=== PATIENT | female | born 1985 | race Caucasian/White ===

== ENCOUNTER 2019-08-08 02:32 | Observation (INO) | payer BC ==
--- NOTE | 2019-08-08 02:49 | EDM.PDOC ---
ED HPI GENERAL MEDICAL PROBLEM - General Chief Complaint: General Stated Complaint: vomiting Time Seen by Provider: 08/08/19 02:40 Source of Information: Reports: Patient History Limitations: Reports: No Limitations - History of Present Illness INITIAL COMMENTS - FREE TEXT/NARRATIVE: Patient to the emergency department complaining of generalized abdominal cramping with nausea vomiting and diarrhea off and on for the past several days. The patient denies any fever chills denies any chest pain or shortness of breath denies any ear, nose, throat symptoms. The patient denies any rash. The patient denies any dark or coffee-ground type vomitus and denies any bloody stools denies any black or tarry stools. The patient denies any mucus in her stools. Onset: Gradual Duration: Day(s): (Symptoms for the past few days) Location: Reports: Abdomen Quality: Reports: Ache Severity: Mild Improves with: Reports: None Worsens with: Reports: None Associated Symptoms: Reports: Nausea/Vomiting. 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 (see below) (none) - Related Data Allergies Allergy/AdvReac Type Severity Reaction Status Date / Time No Known Allergies Allergy Verified 08/08/19 02:36 Home Meds: Home Meds clonazePAM [Clonazepam] 0.5 mg PO BID 02/25/16 [History] Past Medical History - Past Surgical History HEENT Surgical History: Reports: Other (See Below) Other HEENT Surgeries/Procedures: wisdom teeth removal Social & Family History - Tobacco Use Smoking Status *Q: Never Smoker - Caffeine Use Caffeine Use: Reports: Soda - Recreational Drug Use Recreational Drug Use: No ED ROS GENERAL - Review of Systems Review Of Systems: See Below Constitutional: Reports: No Symptoms. Denies: Fever, Chills, Weakness HEENT: Reports: No Symptoms Respiratory: Reports: No Symptoms. Denies: Shortness of Breath Cardiovascular: Reports: No Symptoms. Denies: Chest Pain GI/Abdominal: Reports: Abdominal Pain, Diarrhea, Nausea, Vomiting. Denies: Black Stool, Bloody Stool, Constipation, Difficulty Swallowing, Distension, Hematemesis, Hematochezia, Melena, Mucous in Stool : Reports: No Symptoms Musculoskeletal: Reports: No Symptoms. Denies: Neck Pain, Back Pain Skin: Reports: No Symptoms. Denies: Bruising, Rash, Erythema Neurological: Reports: No Symptoms Psychiatric: Reports: No Symptoms ED EXAM, GENERAL - Physical Exam Exam: See Below Exam Limited By: No Limitations General Appearance: Alert, WD/WN, No Apparent Distress Ears: Normal External Exam Nose: Normal Inspection, Normal Mucosa Throat/Mouth: Normal Inspection, Normal Voice, No Airway Compromise Head: Atraumatic, Normocephalic Neck: Normal Inspection, Supple, Non-Tender, Full Range of Motion Respiratory/Chest: No Respiratory Distress, Lungs Clear, Normal Breath Sounds, Chest Non-Tender Cardiovascular: Normal Peripheral Pulses, Regular Rate, Rhythm, No Murmur Peripheral Pulses: 2+: Radial (L), Radial (R) GI/Abdominal: Normal Bowel Sounds, Soft, Non-Tender, No Distention Back Exam: Normal Inspection, Full Range of Motion Extremities: Normal Inspection, Normal Range of Motion, Non-Tender, Normal Capillary Refill Neurological: Alert, Oriented, Normal Cognition, Normal Gait, No Motor/Sensory Deficits Psychiatric: Normal Affect, Normal Mood Skin Exam: Warm, Dry, Intact, Normal Color, No Rash Course - Vital Signs Text/Narrative:: The patient was evaluated in the emergency department the patient CBC is essentially negative, the patient's general chemistry does show a potassium of 2.6. The rest of the general chemistries are essentially negative. The patient has been given normal saline 1 L bolus. She is also been given Zofran 4 mg IV which has decreased her nausea and vomiting at this point. The patient also will have her potassium replaced she will need to be admitted in observation for probably less than 24 hours to control the nausea vomiting and replace the potassium. Potassium level will be reevaluated at noon today. Orders for details for potassium replacement. The patient has not had to have a stool sample at this point however this will be obtained once the patient does have a bowel movement. Last Recorded V/S: Last Vital Signs Temp 36.5 C 08/08/19 02:32 Pulse 115 H 08/08/19 02:32 Resp 18 08/08/19 02:32 BP 147/102 H 08/08/19 02:32 Pulse Ox 98 08/08/19 02:32 - Orders/Labs/Meds Orders: Active Orders 24 hr Category Date Time Status C DIFFICILE BY DNA [RM] Stat Lab 08/08/19 02:54 Ordered STOOL CULTURE [MREF] Stat Lab 08/08/19 02:54 Ordered WBC, STOOL [OP] Stat Lab 08/08/19 02:54 Ordered NS + KCl 20mEq/L [Normal Saline with 20 mEq KCl] 1,000 Med 08/08/19 03:45 Active ml IV ASDIRECTED Potassium Chloride Riders [KCL 40 MEQ in Water 100 ML] Med 08/08/19 03:39 Active 40 meq Premix Bag 1 bag IV ONETIME Sodium Chloride 0.9% [Normal Saline] 1,000 ml Med 08/08/19 02:53 Active IV .BOLUS Medication Orders Sodium Chloride (Normal Saline) 1,000 mls @ 999 mls/hr IV .BOLUS ONE Stop: 08/08/19 03:53 Last Admin: 08/08/19 03:09 Dose: 999 mls/hr Potassium Chloride 40 meq/ (Premix) 100 mls @ 25 mls/hr IV ONETIME ONE Stop: 08/08/19 07:38 Potassium Chloride/Sodium Chloride (Normal Saline With 20 Meq Kcl) 1,000 mls @ 100 mls/hr IV ASDIRECTED [facility] Labs: Laboratory Tests 08/08/19 08/08/19 08/08/19 Range/Units 03:10 03:10 03:10 WBC 4.6 L (5.0-10.0) 10^3/uL RBC 4.15 (4.00-5.50) 10^6/uL Hgb 13.7 (12.0-16.0) g/dL Hct 38.6 (37.0-47.0) % MCV 93.0 (82.0-94.0) fL MCH 33.0 H (27.0-32.0) pg MCHC 35.5 (33.0-38.0) g/dL RDW Coeff of Stefan 14.0 (11.0-15.0) % Plt Count 199 (150-400) 10^3/uL Neut % (Auto) 60.2 (35-85) % Lymph % (Auto) 31.9 (10-55) % [place] % (Auto) 5.5 (0-16) % Eos % (Auto) 2.0 (0-5) % Baso % (Auto) 0.4 (0-3) % Neut # (Auto) 2.75 (1.80-7.00) 10^3/uL Lymph # (Auto) 1.46 (1.00-4.80) 10^3/uL [place] # (Auto) 0.25 (0.00-0.80) 10^3/uL Eos # (Auto) 0.09 (0.00-0.45) 10^3/uL Baso # (Auto) 0.02 10^3/uL Sodium 143 (136-145) mEq/L Potassium 2.6 L* D (3.5-5.0) mEq/L Chloride 102 (98-106) mEq/L Carbon Dioxide 25 (21-32) mmol/L BUN 10 (7-18) mg/dL Creatinine 0.8 (0.6-1.0) mg/dL Est Cr Clr Drug Dosing 102.78 mL/min Estimated GFR (MDRD) > 60 (>=60) mL/min Glucose 106 H (75-99) mg/dL Calcium 8.8 (8.4-10.1) mg/dL Total Bilirubin 0.9 (0.0-1.0) mg/dL AST 195 H (15-37) U/L ALT 55 (12-78) U/L Alkaline Phosphatase 92 (46-116) U/L Total Protein 7.8 (6.4-8.2) g/dL Albumin 3.7 (3.4-5.0) g/dL Lipase 183 (73-393) U/L HCG, Qual Negative Meds: Medications Generic Name Dose Route Start Last Admin Trade Name Freq PRN Reason Stop Dose Admin Sodium Chloride 1,000 mls @ 999 mls/hr 08/08/19 02:53 08/08/19 03:09 Normal Saline IV 08/08/19 03:53 999 mls/hr .BOLUS ONE Administration Potassium Chloride 40 meq/ 100 mls @ 25 mls/hr 08/08/19 03:39 Premix IV 08/08/19 07:38 ONETIME ONE Potassium Chloride/Sodium Chloride 1,000 mls @ 100 mls/hr 08/08/19 03:45 Normal Saline With 20 Meq Kcl IV ASDIRECTED EFREM Discontinued Medications Generic Name Dose Route Start Last Admin Trade Name Freq PRN Reason Stop Dose Admin Ondansetron HCl 4 mg 08/08/19 02:54 08/08/19 03:11 Zofran IVPUSH 08/08/19 02:55 4 mg ONETIME ONE Administration Potassium Chloride 40 meq 08/08/19 03:40 Klor-Con 10 PO 08/08/19 03:41 ONETIME ONE Departure - Departure Time of Disposition: 03:50 Disposition: Refer to Observation Condition: Good Clinical Impression: Nausea vomiting and diarrhea, Hypokalemia - Discharge Information *PRESCRIPTION DRUG MONITORING PROGRAM REVIEWED*: Not Applicable *COPY OF PRESCRIPTION DRUG MONITORING REPORT IN PATIENT MARY: Not Applicable Forms: ED Department Discharge - Problem List & Annotations (1) Hypokalemia SNOMED Code(s): 99412470 Code(s): E87.6 - HYPOKALEMIA Status: Acute Priority: High (2) Nausea vomiting and diarrhea SNOMED Code(s): 4643588 Code(s): R11.2 - NAUSEA WITH VOMITING, UNSPECIFIED; R19.7 - DIARRHEA, UNSPECIFIED Status: Acute Priority: Medium - Problem List Review Problem List Initiated/Reviewed/Updated: Yes - My Orders Last 24 Hours: My Active Orders 08/08/19 02:53 Sodium Chloride 0.9% [Normal Saline] 1,000 ml IV .BOLUS 08/08/19 02:54 C DIFFICILE BY DNA [RM] Stat STOOL CULTURE [MREF] Stat WBC, STOOL [OP] Stat 08/08/19 03:39 Potassium Chloride Riders [KCL 40 MEQ in Water 100 ML] 40 meq Premix Bag 1 bag IV ONETIME 08/08/19 03:45 NS + KCl 20mEq/L [Normal Saline with 20 mEq KCl] 1,000 ml IV ASDIRECTED - Assessment/Plan Admission H&P: Please use this note as an admission H&P Last 24 Hours: My Active Orders 08/08/19 02:53 Sodium Chloride 0.9% [Normal Saline] 1,000 ml IV .BOLUS 08/08/19 02:54 C DIFFICILE BY DNA [RM] Stat STOOL CULTURE [MREF] Stat WBC, STOOL [OP] Stat 08/08/19 03:39 Potassium Chloride Riders [KCL 40 MEQ in Water 100 ML] 40 meq Premix Bag 1 bag IV ONETIME 08/08/19 03:45 NS + KCl 20mEq/L [Normal Saline with 20 mEq KCl] 1,000 ml IV ASDIRECTED Plan: The patient will be placed in observation and will have IV fluid replacement as well as potassium replacement. This will be reevaluated at noon and then disposition and further treatment will be made at that point. Stool sample is pending and additional treatment will be based on the results of the stool sample. Patient will be given Zofran 4 mg IV every 6 hours as needed for any nausea or vomiting
[2019-08-08] MEDS ORDERED: Sodium Chloride 0.9% 1,000 ML IV ONE (02:53)
[2019-08-08] MEDS ORDERED: Ondansetron 4 MG/2 ML SDV IVPUSH ONE (02:54)
[2019-08-08 03:32] LABS: CHLORIDE,CL 102 mEq/L (98-106); SODIUM,NA 143 mEq/L (136-145)
[2019-08-08] MEDS ORDERED: Potassium Chloride Riders 40 MEQ in Premix Bag 1 BAG IV ONE (03:39)
[2019-08-08] MEDS ORDERED: Potassium Chloride 10 MEQ Tab.ER PO ONE (03:40)
[2019-08-08] MEDS ORDERED: Ondansetron 4 MG/2 ML SDV IV PRN (03:53)
[2019-08-08] MEDS: NS + KCl 20mEq/L 1,000 ML IV SCH ×2 (04:18→14:30)
[2019-08-08] MEDS: ClonazePAM 1 MG Tab PO SCH ×2 (08:09→19:12)
[2019-08-08 12:18] LABS: CHLORIDE,CL 105 mEq/L (98-106); SODIUM,NA 141 mEq/L (136-145)
[2019-08-08] MEDS: Acetaminophen 325 MG Tab PO PRN ×2 (13:56→19:13)
[2019-08-08] MEDS ORDERED: cefTRIAXone 1 GM Vial IVPUSH SCH (14:00)
[2019-08-08] MEDS ORDERED: Pantoprazole 40 MG Vial IVPUSH SCH (14:00)
[2019-08-08] MEDS ORDERED: Magnesium Sulfate/D5W 2 GM in Premix Bag 1 BAG IV ONE (15:07)
[2019-08-08] MEDS: Ibuprofen 200 MG Tab PO PRN (23:38)
[2019-08-09] MEDS: NS + KCl 20mEq/L 1,000 ML IV SCH (02:33)
[2019-08-09] MEDS: Acetaminophen 325 MG Tab PO PRN (02:38)
[2019-08-09] MEDS: ClonazePAM 1 MG Tab PO SCH (07:22)
[2019-08-09] MEDS: Ibuprofen 200 MG Tab PO PRN (07:25)
[2019-08-09 07:34] VITALS: PULSE 94
[2019-08-09 07:34] LABS: CHLORIDE,CL 108 mEq/L (98-106); SODIUM,NA 141 mEq/L (136-145)
[2019-08-09 09:09] VITALS: BP 157/91
--- NOTE | 2019-08-10 08:58 | DISCH ---
HISTORY: Nancy is a 33-year-old female who presented to the emergency room yesterday morning with concerns of abdominal cramping with nausea, vomiting, diarrhea that was on and off for the last few days. The patient did have a complete laboratory workup, was found to have low potassium. The patient was admitted to the hospital for IV fluids and potassium replacement. Magnesium was drawn in the morning with the magnesium of 1.2. ADMITTING DIAGNOSES: 1. Nausea, vomiting, diarrhea. 2. Hypokalemia. DISCHARGE DIAGNOSIS: 1. HYPOKALEMIA, RESOLVED. 2. HYPOMAGNESEMIA, RESOLVED. 3. NAUSEA, VOMITING, DIARRHEA, RESOLVED. 4. ELEVATED BLOOD PRESSURE READINGS. CONSULTATIONS: None. BRIEF HOSPITAL COURSE: The patient has had 2 episodes of diarrhea since admission. Potassium this morning is now 3.7. Overall, she is feeling a lot better. Her magnesium is also corrected at 1.9 this morning. She did show a positive urinalysis with positive nitrites. IV Rocephin has been given, was given yesterday, and also given this morning. Last blood pressure was 129/97, was 151/92, 132/89 prior. PHYSICAL EXAMINATION: GENERAL: Pleasant, cooperative female. She does not really appear in any distress whatsoever. She is sitting up, having normal conversation. Appeared to be nontoxic nor acutely ill. HEENT: Grossly unremarkable. LUNGS: Clear to auscultation. Denies any adventitious sounds. CARDIAC: Regular rate and rhythm. No murmurs are noted. No pedal edema is noted. ABDOMEN: Soft. Bowel sounds are present. Normoactive. No organomegaly. No guarding or rigidity is noted. LABORATORY DATA: Further, the laboratory tests completed during her stay do include C. diff which was negative. WBCs in stool which were negative. Otherwise, CBC was unremarkable on admission. White blood count was 4600. DISPOSITION: Diet: Resume diet as tolerated. May want to consider a BRAT diet. DISCHARGE MEDICATIONS: We will refrain from giving any potassium supplements or magnesium supplements. I discussed bananas, etc. I did advise patient that it is likely secondary to the nausea, vomiting, diarrhea that had caused her to get a low potassium and also low magnesium. We will refrain from any hypertensive medications at this point in time. Followup appointments; do recommend rechecking blood pressure in clinic tomorrow and the next day with a followup with the PCP within the next week for recheck blood pressure. She is to continue to drink a lot of fluids. If she has any complications sooner, she definitely is to let us know. I did advise her that repeat lab work should be completed in 1 week. We will discharge in satisfactory condition at this time. CANDI /[id number]
== END 2019-08-09 10:00 | disposition home or self-care (01) ==
LOC: CC.ED 02:32 → CC.MS 03:53 → UNDOADMOB 04:00
PROVIDERS: ADMIT Nurse Practitioner; ATTEND Family Medicine
DX: E87.6 Hypokalemia (principal); E83.42 Hypomagnesemia; R03.0 Elevated blood-pressure reading, without diagnosis of hypertension; R10.9 Unspecified abdominal pain; R11.2 Nausea with vomiting, unspecified; R19.7 Diarrhea, unspecified; Z79.899 Other long term (current) drug therapy
CPT/HCPCS: 36415; 71046; 80048; 80053; 81001; 83690; 83735; 84703; 85025; 87045; 87046; 87493; 89055; 96361; 96365; 96366; 96368; 96374; 96375; 99284-25; A9270-GY; C9113; G0378; J0696; J2405; J3475; J3480; J7030

== ENCOUNTER 2021-09-15 10:57 | Emergency (ER) | payer BC ==
[2021-09-15 11:13] VITALS: BP 128/87; PULSE 100
--- NOTE | 2021-09-15 11:45 | EDM.PDOC ---
ED HPI GENERAL MEDICAL PROBLEM - General Chief Complaint: General Stated Complaint: frostbite bilateral ears Time Seen by Provider: 09/15/21 11:25 Source of Information: Reports: Patient History Limitations: Reports: No Limitations - History of Present Illness INITIAL COMMENTS - FREE TEXT/NARRATIVE: Nancy is a 36 year old female who presents with swelling, blisters and pain to her ears. Was out shoveling snow yesterday without any ear protection and the wind chill was well below zero. Noted more discomfort during the night. Has been taking ibuprofen for discomfort. Noted blistering to her left ear that is causing a great deal of discomfort today. Last tetanus was within the year. Onset: Gradual Duration: Hour(s):, Getting Worse Location: Reports: Head Quality: Reports: Burning, Throbbing Severity: Moderate Improves with: Reports: Medication Associated Symptoms: Reports: No Other Symptoms Treatments FLAME DEGREASER: Reports: NSAIDS Bilateral Ear Pain Score (Numeric/FACES): 7 - Related Data Allergies Allergy/AdvReac Type Severity Reaction Status Date / Time No Known Allergies Allergy Verified 09/15/21 11:18 Home Meds: Home Meds clonazePAM [Clonazepam] 0.5 mg PO BID 02/25/16 [History] Etonogestrel [Nexplanon] 68 mg SQ ASDIRECTED 12/10/20 [History] Albuterol Sulfate [Albuterol Sulfate Hfa] 1 inh INH ASDIRECTED 09/15/21 [History] Past Medical History - Past Surgical History HEENT Surgical History: Reports: Other (See Below) Other HEENT Surgeries/Procedures: wisdom teeth removal Social & Family History - Tobacco Use Tobacco Use Status *Q: Never Tobacco User - Caffeine Use Caffeine Use: Reports: Soda - Recreational Drug Use Recreational Drug Use: No ED ROS GENERAL - Review of Systems Review Of Systems: See Below Constitutional: Denies: Fever, Chills, Malaise, Weakness HEENT: Reports: Ear Pain. Denies: Ear Discharge Respiratory: Reports: No Symptoms Cardiovascular: Reports: No Symptoms Endocrine: Reports: No Symptoms GI/Abdominal: Reports: No Symptoms ED EXAM, GENERAL - Physical Exam Exam: See Below Exam Limited By: No Limitations General Appearance: Alert, WD/WN, No Apparent Distress Ears: Normal Canal, Other (significant redness, swelling of the auricle of both ears. Has large blister to upper auricle to the left ear, small one to the right ear.) Nose: Normal Inspection, Normal Mucosa, No Blood Throat/Mouth: Normal Inspection, Normal Oropharynx Head: Normocephalic Neck: Normal Inspection, Supple, Non-Tender Respiratory/Chest: No Respiratory Distress, Lungs Clear, Normal Breath Sounds Cardiovascular: Regular Rate, Rhythm GI/Abdominal: Normal Bowel Sounds, Soft, Non-Tender Course - Vital Signs Last Recorded V/S: Last Vital Signs Temp 97.3 F 09/15/21 11:00 Pulse 100 09/15/21 11:00 Resp 18 09/15/21 11:00 BP 128/87 09/15/21 11:00 Pulse Ox 97 09/15/21 11:00 - Re-Assessments/Exams Free Text/Narrative Re-Assessment/Exam: 09/15/21 xeroform gauze applied to auricles bilaterally. Gauze applied lightly and head wrapped with gauze. Instructions given. Departure - Departure Time of Disposition: 12:00 Disposition: Home, Self-Care 01 Condition: Fair Clinical Impression: Frostbite of both ears - Discharge Information *PRESCRIPTION DRUG MONITORING PROGRAM REVIEWED*: No *COPY OF PRESCRIPTION DRUG MONITORING REPORT IN PATIENT MARY: No Instructions: Frostbite, [id number] Referrals: PCP,Unknown [Primary Care Provider] - Forms: ED Department Discharge Additional Instructions: 1. Keep moist xeroform gauze on ears for 24 hours with current bandage 2. Reapply xeroform and light gauze tomorrow or use vaseline 2-3 times per day to ears 3. May need to see physical therapy for debridement if ears peel a great deal, have increased drainage or increasing pain 4. Ibuprofen every 6 hours as needed 5. Follow up in clinic if persisting concerns. Sepsis Event Note (ED) - Evaluation Sepsis Screening Result: No Definite Risk - Focused Exam Vital Signs: Vital Signs Temp Pulse Resp BP Pulse Ox 09/15/21 11:00 97.3 F 100 18 128/87 97
== END 2021-09-15 12:00 | disposition home or self-care (01) ==
LOC: CC.ED 10:57
DX: T33.012A Superficial frostbite of left ear, initial encounter (principal); T33.011A Superficial frostbite of right ear, initial encounter; X31.XXXA Exposure to excessive natural cold, initial encounter
CPT/HCPCS: 99282

== ENCOUNTER 2022-03-17 14:20 | Observation (INO) | payer BC ==
[2022-03-17 14:49] LABS: CHLORIDE,CL 104 mEq/L (98-106); SODIUM,NA 143 mEq/L (136-145)
[2022-03-17 14:50] LABS: ESTIMATED GFR 116 mL/min (>=60)
[2022-03-17] MEDS ORDERED: Aluminum Hydroxide/Magnesium Hydroxide/Simethicone Susp 30 ML Cup PO PRN (16:42)
[2022-03-17] MEDS ORDERED: Acetaminophen 325 MG Tab PO PRN (16:42)
[2022-03-17] MEDS ORDERED: LORazepam 0.5 MG Tab PO PRN (16:47)
[2022-03-17] MEDS ORDERED: LORazepam 2 MG/ML Syringe IVPUSH PRN ×2 (16:54→17:30)
[2022-03-17] MEDS ORDERED: ETONOGESTREL 68 MG SQ SCH (16:54)
[2022-03-17] MEDS ORDERED: Albuterol 8 GM Inhaler INH PRN (16:54)
[2022-03-17] MEDS ORDERED: Non-Formulary Medication 1 Each (Albuterol Sulfate [Albuterol Sulfate Hfa] 8.5 GM Hfa.Aer. INH PRN (16:54)
[2022-03-17] MEDS: Folic Acid 1 MG, Multivitamins 1 TAB, Thiamine 100 MG, Magnesium Oxide 500 MG PO SCH ×4 (17:32)
[2022-03-17] MEDS: chlordiazePOXIDE 10 MG Cap PO SCH (19:24)
[2022-03-18] MEDS: chlordiazePOXIDE 10 MG Cap PO SCH (07:51)
[2022-03-18] MEDS: Folic Acid 1 MG, Multivitamins 1 TAB, Thiamine 100 MG, Magnesium Oxide 500 MG PO SCH ×4 (07:53)
[2022-03-18] MEDS ORDERED: Loratadine 10 MG Tab PO SCH (08:00)
[2022-03-18] MEDS ORDERED: Potassium Chloride 10 MEQ Tab.ER PO SCH (08:00)
[2022-03-18] MEDS ORDERED: Cholecalciferol (Vitamin D3) 25 MCG Tab PO SCH (08:00)
[2022-03-18] MEDS ORDERED: Montelukast 10 MG Tab PO SCH (08:00)
[2022-03-18 09:10] VITALS: BP 113/91; PULSE 79
== END 2022-03-18 10:01 | disposition home or self-care (01) ==
LOC: CC.FCMC 14:20 → UNDOADMOB 15:51 → CC.MS 15:51 → UNDOADMOB 15:54 → CC.MS 15:54
PROVIDERS: ADMIT Nurse Practitioner Family; ATTEND Nurse Practitioner Family
DX: F10.139 Alcohol abuse with withdrawal, unspecified (principal); F10.188 Alcohol abuse with other alcohol-induced disorder; R56.9 Unspecified convulsions; F41.9 Anxiety disorder, unspecified; E87.6 Hypokalemia; Z79.899 Other long term (current) drug therapy; Z79.3 Long term (current) use of hormonal contraceptives
CPT/HCPCS: 36415; 80053; 80307; 83735; 84443; 85025; A9270-GY; G0378

== ENCOUNTER 2023-08-10 10:35 | Inpatient (IN) | payer BC ==
[2023-08-10 10:50] LABS: BASOPHILS ABSOLUTE AUTO 0.04 10^3/uL (0.00-0.50); BASOPHILS PERCENT AUTO 0.3 % (0-1); EOSINOPHILS ABSOLUTE AUTO 0.21 10^3/uL (0.00-1.50); EOSINOPHILS PERCENT AUTO 1.5 % (0-6); HEMATOCRIT 35.4 % (37.0-47.0); HEMOGLOBIN 11.9 g/dL (12.0-16.0); IMMATURE GRAN ABSOLUTE AUTO 0.04 10^3/uL (0.00-0.49); IMMATURE GRAN PERCENT AUTO 0.3 % (0.0-4.9); LYMPHOCYTES ABSOLUTE AUTO 0.72 10^3/uL (0.60-5.00); LYMPHOCYTES PERCENT AUTO 5.2 % (24-44); MEAN CORPUSCULAR HEMOGLOBIN 34.5 pg (27.0-32.0); MEAN CORPUSCULAR HGB CONC 33.6 g/dL (32.0-36.0); MEAN CORPUSCULAR VOLUME 102.6 fL (83.0-97.0); MONOCYTES ABSOLUTE AUTO 1.15 10^3/uL (0.00-1.50); MONOCYTES PERCENT AUTO 8.4 % (0-10); NEUTROPHILS PERCENT AUTO 84.3 % (41-71); PLATELET COUNT,PLT 170 10^3/uL (150-400); RED BLOOD CELL COUNT 3.45 x10^6/uL (4.00-5.50); WHITE BLOOD CELL COUNT,WBC 13.8 10^3/uL (4.0-11.0)
[2023-08-10 11:04] LABS: ALANINE AMINOTRANSFERASE,ALT 32 U/L (12-78); ALBUMIN 2.4 g/dL (3.4-5.0); ALKALINE PHOSPHATASE 302 U/L (46-116); BILIRUBIN TOTAL 4.6 mg/dL (0.0-1.0); BLOOD UREA NITROGEN,BUN 7 mg/dL (7-18); C-REACTIVE PROTEIN 1.83 mg/dL (<=0.30); CALCIUM 8.6 mg/dL (8.4-10.1); CARBON DIOXIDE,CO2 30 mmol/L (21-32); CHLORIDE,CL 98 mEq/L (98-106); CREATININE 0.7 mg/dL (0.6-1.0); ETHANOL BLOOD MEDICAL 219 mg/dL (0-3); GLUCOSE RANDOM 121 mg/dL (75-99); MAGNESIUM 1.9 mg/dL (1.8-2.4); PROTEIN TOTAL,TP 8.3 g/dL (6.4-8.2); SODIUM,NA 139 mEq/L (136-145)
[2023-08-10 11:10] LABS: ASPARTATE AMNIOTRANSFERASE,AST 379 U/L (15-37); ESTIMATED GFR 116 mL/min (>=60); POTASSIUM,K 2.8 mEq/L (3.5-5.0)
[2023-08-10] MEDS ORDERED: Ondansetron 4 MG/2 ML SDV IV PRN (11:59)
[2023-08-10] MEDS ORDERED: Temazepam 15 MG Cap PO PRN (11:59)
[2023-08-10] MEDS ORDERED: Sodium Chloride 0.9% 10 ML Syringe FLUSH PRN (11:59)
[2023-08-10] MEDS ORDERED: Ondansetron 4 MG Tab.DIS PO PRN (11:59)
[2023-08-10 12:00] LABS: APPEARANCE,URINE CLEAR (CLEAR); COLOR,URINE AMBER (YELLOW); KETONES,URINE 15 mg/dL (NEGATIVE); LEUKOCYTE ESTERASE,URINE TRACE (NEGATIVE); NITRITE,URINE POSITIVE (NEGATIVE); OCCULT BLOOD,URINE TRACE-INTACT (NEGATIVE); PH,URINE 5.5 (4.5-8.0); PROTEIN,URINE 100 mg/dL (NEGATIVE); UROBILINOGEN,URINE >=8.0 EU/dL (0.2-1.0)
[2023-08-10 12:04] LABS: BILIRUBIN,URINE LARGE (NEGATIVE); GLUCOSE,URINE NEGATIVE (NEGATIVE)
[2023-08-10] MEDS ORDERED: Albuterol 6.7 GM Inhaler INH PRN (12:08)
[2023-08-10] MEDS ORDERED: Metoprolol Tartrate 5 MG/5 ML SDV IVPUSH ONE ×2 (12:16→20:52)
[2023-08-10 12:23] LABS: BACTERIA,URINE MODERATE /HPF (NOT SEEN); EPITHELIAL CELLS,URINE FEW /HPF (NOT SEEN); MUCUS,URINE FEW /HPF (NOT SEEN); WBC,URINE 20-30 /HPF (0-5)
[2023-08-10] MEDS: Sodium Chloride 0.9% 1,000 ML IV SCH ×3 (12:26→21:51)
[2023-08-10] MEDS: Potassium Chloride Riders 20 MEQ in Premix Bag 1 BAG IV SCH ×3 (12:58→18:03)
[2023-08-10] MEDS ORDERED: Fluticasone NASAL Spray 16 GM Bottle NASBOTH PRN (14:58)
[2023-08-10] MEDS ORDERED: Ketorolac 30 MG/ML SDV IVPUSH ONE (15:37)
[2023-08-10] MEDS: Potassium Chloride 20 MEQ Tab.ER PO SCH (17:24)
[2023-08-10] MEDS: Pregabalin 50 MG Cap PO SCH (19:24)
[2023-08-10] MEDS: Pregabalin 25 MG Cap PO SCH (19:24)
[2023-08-10] MEDS ORDERED: BUSPIRONE HCL 7.5 MG PO SCH (20:00)
[2023-08-11] MEDS: LORazepam 2 MG/ML SDV IVPUSH PRN ×4 (01:57→20:57)
[2023-08-11 07:33] LABS: HEMATOCRIT 29.8 % (37.0-47.0); HEMOGLOBIN 10.1 g/dL (12.0-16.0); LYMPHOCYTES PERCENT AUTO 5.2 % (24-44); MEAN CORPUSCULAR HEMOGLOBIN 35.2 pg (27.0-32.0); MEAN CORPUSCULAR HGB CONC 33.9 g/dL (32.0-36.0); MEAN CORPUSCULAR VOLUME 103.8 fL (83.0-97.0); NEUTROPHILS PERCENT AUTO 86.9 % (41-71); PLATELET COUNT,PLT 114 10^3/uL (150-400); RED BLOOD CELL COUNT 2.87 x10^6/uL (4.00-5.50); WHITE BLOOD CELL COUNT,WBC 10.7 10^3/uL (4.0-11.0)
[2023-08-11 07:34] LABS: BASOPHILS ABSOLUTE AUTO 0.01 10^3/uL (0.00-0.50); BASOPHILS PERCENT AUTO 0.1 % (0-1); EOSINOPHILS ABSOLUTE AUTO 0.08 10^3/uL (0.00-1.50); EOSINOPHILS PERCENT AUTO 0.8 % (0-6); IMMATURE GRAN ABSOLUTE AUTO 0.05 10^3/uL (0.00-0.49); IMMATURE GRAN PERCENT AUTO 0.5 % (0.0-4.9); LYMPHOCYTES ABSOLUTE AUTO 0.55 10^3/uL (0.60-5.00); MONOCYTES ABSOLUTE AUTO 0.69 10^3/uL (0.00-1.50); MONOCYTES PERCENT AUTO 6.5 % (0-10); NEUTROPHILS ABSOLUTE AUTO 9.28 x10^3/uL (1.80-8.00)
[2023-08-11] MEDS: Potassium Chloride 20 MEQ Tab.ER PO SCH ×2 (07:43→17:21)
[2023-08-11] MEDS: Pregabalin 25 MG Cap PO SCH ×2 (07:43→19:26)
[2023-08-11] MEDS: Sodium Chloride 0.9% 1,000 ML IV SCH ×3 (07:43→19:27)
[2023-08-11] MEDS: Pregabalin 50 MG Cap PO SCH ×2 (07:43→19:26)
[2023-08-11] MEDS: Ibuprofen 200 MG Tab PO PRN (07:44)
[2023-08-11] MEDS: Magnesium Oxide 400 MG Tab PO SCH (07:44)
[2023-08-11] MEDS ORDERED: Thiamine 500 MG in Sodium Chloride 0.9% 250 ML IV SCH (07:45)
[2023-08-11] MEDS: Metoprolol Succinate 25 MG Tab.ER PO SCH (07:45)
[2023-08-11 07:47] LABS: ALBUMIN 1.9 g/dL (3.4-5.0); BILIRUBIN TOTAL 7.9 mg/dL (0.0-1.0); C-REACTIVE PROTEIN 1.73 mg/dL (<=0.30); CALCIUM 7.3 mg/dL (8.4-10.1); CREATININE 0.7 mg/dL (0.6-1.0); EST CRCL DRUG DOSING (CG) 100.94 mL/min; POTASSIUM,K 3.7 mEq/L (3.5-5.0); PROTEIN TOTAL,TP 6.5 g/dL (6.4-8.2)
[2023-08-11] MEDS ORDERED: Montelukast 10 MG Tab PO SCH (08:00)
[2023-08-11] MEDS: Multivitamin Tab PO SCH (08:18)
[2023-08-11] MEDS: Folic Acid 1 MG Tab PO SCH (08:18)
[2023-08-11] MEDS ORDERED: cefTRIAXone 2 GM Vial IVPUSH ONE ×2 (09:00→09:15)
[2023-08-11 11:56] LABS: TSH ULTRASENSITIVE 3.91 uIU/mL (0.36-5.60)
[2023-08-11] MEDS: ALPRAZolam 0.25 MG Tab PO SCH ×2 (13:20→19:26)
[2023-08-11] MEDS: Thiamine 500 MG in Sodium Chloride 0.9% 100 ML IV SCH ×2 (13:20→19:25)
[2023-08-11 22:41] LABS: AMMONIA 169 umol/L (6-47)
[2023-08-12] MEDS: Ibuprofen 200 MG Tab PO PRN (01:29)
[2023-08-12] MEDS: Lactulose Soln 10 GM/15 ML 30 ML UD Cup PO SCH ×5 (01:50→19:31)
[2023-08-12] MEDS: LORazepam 2 MG/ML SDV IVPUSH PRN ×2 (02:28→09:00)
[2023-08-12] MEDS: Thiamine 500 MG in Sodium Chloride 0.9% 100 ML IV SCH ×3 (07:54→19:32)
[2023-08-12] MEDS: Potassium Chloride 20 MEQ Tab.ER PO SCH ×2 (07:57→17:37)
[2023-08-12 07:58] LABS: ALBUMIN 1.9 g/dL (3.4-5.0); BILIRUBIN TOTAL 7.3 mg/dL (0.0-1.0); C-REACTIVE PROTEIN 2.71 mg/dL (<=0.30); CALCIUM 7.9 mg/dL (8.4-10.1); CREATININE 0.6 mg/dL (0.6-1.0); EST CRCL DRUG DOSING (CG) 117.76 mL/min; MAGNESIUM 1.4 mg/dL (1.8-2.4); POTASSIUM,K 3.5 mEq/L (3.5-5.0); PROTEIN TOTAL,TP 6.5 g/dL (6.4-8.2)
[2023-08-12] MEDS: Metoprolol Succinate 25 MG Tab.ER PO SCH (07:58)
[2023-08-12] MEDS: Multivitamin Tab PO SCH (07:59)
[2023-08-12] MEDS: ALPRAZolam 0.25 MG Tab PO SCH ×2 (07:59→18:13)
[2023-08-12] MEDS ORDERED: cefTRIAXone 2 GM Vial IVPUSH SCH (08:00)
[2023-08-12] MEDS: Pregabalin 25 MG Cap PO SCH ×2 (08:00→19:31)
[2023-08-12] MEDS: Folic Acid 1 MG Tab PO SCH (08:00)
[2023-08-12] MEDS: Magnesium Oxide 400 MG Tab PO SCH (08:00)
[2023-08-12] MEDS: Pregabalin 50 MG Cap PO SCH ×2 (08:00→19:31)
[2023-08-12 08:08] LABS: BASOPHILS ABSOLUTE AUTO 0.02 10^3/uL (0.00-0.50); BASOPHILS PERCENT AUTO 0.2 % (0-1); EOSINOPHILS ABSOLUTE AUTO 0.22 10^3/uL (0.00-1.50); EOSINOPHILS PERCENT AUTO 2.2 % (0-6); HEMATOCRIT 30.6 % (37.0-47.0); HEMOGLOBIN 10.1 g/dL (12.0-16.0); IMMATURE GRAN ABSOLUTE AUTO 0.03 10^3/uL (0.00-0.49); IMMATURE GRAN PERCENT AUTO 0.3 % (0.0-4.9); MEAN CORPUSCULAR HEMOGLOBIN 35.1 pg (27.0-32.0); MEAN CORPUSCULAR VOLUME 106.3 fL (83.0-97.0); MONOCYTES ABSOLUTE AUTO 0.69 10^3/uL (0.00-1.50); MONOCYTES PERCENT AUTO 6.9 % (0-10); NEUTROPHILS ABSOLUTE AUTO 8.35 x10^3/uL (1.80-8.00); NEUTROPHILS PERCENT AUTO 83.4 % (41-71); PLATELET COUNT,PLT 120 10^3/uL (150-400); RED BLOOD CELL COUNT 2.88 x10^6/uL (4.00-5.50)
[2023-08-12] MEDS ORDERED: Magnesium Sulfate/Water 4 GM in Premix Bag 1 BAG IV ONE (09:00)
[2023-08-12] MEDS ORDERED: Iopamidol 755 Mg/ML 100 ML Bottle IVPUSH ONE (09:37)
[2023-08-12 11:42] LABS: INR 1.41 (0.92-1.18); PROTHROMBIN TIME 14.4 SEC (9.3-11.3)
[2023-08-12] MEDS ORDERED: Flumazenil 0.1 MG/ML 10 ML MDV IVPUSH STA (14:05)
[2023-08-12 16:11] VITALS: BP 115/73; PULSE 121
[2023-08-12] MEDS: Sodium Chloride 0.9% 1,000 ML IV SCH (18:29)
[2023-08-13 11:41] LABS: HBSAG SCREEN Negative (Negative); HCV AB Non Reactive (Non Reactive); HEP A AB, IGM Negative (Negative); HEP B CORE AB, IGM Negative (Negative)
== END 2023-08-12 20:34 | DRG 775 ==
LOC: CC.MS 10:35 → CC.FCMC 10:35 → CC.MS 11:12 → UNDOADMOB 11:46 → CC.MS 11:59 → OBSVTOIN 08-11 11:12
PROVIDERS: ADMIT Nurse Practitioner Family; ATTEND Nurse Practitioner Family
DX: F10.229 Alcohol dependence with intoxication, unspecified (principal); K76.82 Hepatic encephalopathy; E87.6 Hypokalemia; E83.42 Hypomagnesemia; R79.89 Other specified abnormal findings of blood chemistry; G57.93 Unspecified mononeuropathy of bilateral lower limbs; E86.0 Dehydration; R00.0 Tachycardia, unspecified; E51.2 Wernicke's encephalopathy; N30.01 Acute cystitis with hematuria; F10.10 Alcohol abuse, uncomplicated; G62.9 Polyneuropathy, unspecified; Y90.7 Blood alcohol level of 200-239 mg/100 ml; F32.A Depression, unspecified; F10.239 Alcohol dependence with withdrawal, unspecified; Z79.899 Other long term (current) drug therapy
CPT/HCPCS: 36415; 70450; 74177; 76705; 80053; 80074; 80307; 81001; 82140; 82272; 82550; 83690; 83735; 84425; 84443; 84703; 85025; 85610; 86140; 87086; 87088; 87186; 93005; 96361; 96365; 96366; 96367; 96375; 96376; 97161-GP; A9270-GY; G0378; J0696; J1885; J2060; J3411; J3475; J3480; J3490; J7030; J7050; Q9967

== ENCOUNTER 2023-11-20 10:09 | Day surgery (SDC) | payer BC, MEDICAID ==
[2023-11-20 10:21] LABS: BASOPHILS ABSOLUTE AUTO 0.02 10^3/uL (0.00-0.50); BASOPHILS PERCENT AUTO 0.5 % (0-1); EOSINOPHILS ABSOLUTE AUTO 0.09 10^3/uL (0.00-1.50); EOSINOPHILS PERCENT AUTO 2.3 % (0-6); HEMATOCRIT 33.5 % (37.0-47.0); HEMOGLOBIN 11.3 g/dL (12.0-16.0); LYMPHOCYTES ABSOLUTE AUTO 1.39 10^3/uL (0.60-5.00); LYMPHOCYTES PERCENT AUTO 36.1 % (24-44); MEAN CORPUSCULAR HEMOGLOBIN 32.2 pg (27.0-32.0); MEAN CORPUSCULAR HGB CONC 33.7 g/dL (32.0-36.0); MEAN CORPUSCULAR VOLUME 95.4 fL (83.0-97.0); MONOCYTES ABSOLUTE AUTO 0.19 10^3/uL (0.00-1.50); MONOCYTES PERCENT AUTO 4.9 % (0-10); NEUTROPHILS ABSOLUTE AUTO 2.16 x10^3/uL (1.80-8.00); NEUTROPHILS PERCENT AUTO 56.2 % (41-71); PLATELET COUNT,PLT 201 10^3/uL (150-400); RED BLOOD CELL COUNT 3.51 x10^6/uL (4.00-5.50); WHITE BLOOD CELL COUNT,WBC 3.9 10^3/uL (4.0-11.0)
[2023-11-20] MEDS: Lactated Ringers 1,000 ML IV SCH (10:58)
[2023-11-20] MEDS ORDERED: Ketamine 200 MG/20 ML MDV ONE (11:10)
[2023-11-20] MEDS ORDERED: fentaNYL 50 MCG/ML SDV ONE (11:10)
[2023-11-20] MEDS ORDERED: Propofol 200 MG/20 ML SDV ONE (11:10)
[2023-11-20] MEDS ORDERED: Midazolam 1 MG/ML 2 ML SDV ONE (11:10)
[2023-11-20] MEDS ORDERED: Lidocaine 2% 20 ML MDV ONE (11:10)
[2023-11-20 12:15] VITALS: BP 103/67; PULSE 83
== END 2023-11-20 12:15 | disposition home or self-care (01) ==
LOC: CC.SDS 10:09
PROVIDERS: ATTEND Family Medicine
DX: K29.50 Unspecified chronic gastritis without bleeding (principal); K70.9 Alcoholic liver disease, unspecified; J30.9 Allergic rhinitis, unspecified; K92.1 Melena; K74.60 Unspecified cirrhosis of liver; E87.6 Hypokalemia; E51.2 Wernicke's encephalopathy; E83.42 Hypomagnesemia; G47.00 Insomnia, unspecified; Z79.899 Other long term (current) drug therapy
CPT/HCPCS: 00731; 36415; 84703; 85025; 87081; J2250; J2704; J3010; J3490; J7120

== ENCOUNTER 2024-01-19 19:26 | Emergency (ER) | payer MEDICAID ==
[2024-01-19 19:29] VITALS: BP 98/67; PULSE 93
[2024-01-19] MEDS: predniSONE 20 MG Tab PO STA (20:17)
== END 2024-01-19 20:30 | disposition home or self-care (01) ==
LOC: CC.ED 19:26
DX: M70.52 Other bursitis of knee, left knee (principal); J45.909 Unspecified asthma, uncomplicated; Z79.51 Long term (current) use of inhaled steroids; Z79.899 Other long term (current) drug therapy
CPT/HCPCS: 73562-LT; 99283; J7512